=== PATIENT | female | born 1965 | race Caucasian/White ===

== ENCOUNTER → 2018-02-06 | Outpatient (CLI) | payer BC ==
--- NOTE | 2018-02-07 10:35 | ECHOF ---
Referral Reason:R06.02 Shortness of breath, R06.00 Dyspnea MEASUREMENTS -------- HEIGHT: 162.6 cm WEIGHT: 86.2 kg BP: 142/80 RVIDd: 3.2 cm (< 3.3) IVSd: 1.2 cm (0.6 - 1.1) LVIDd: 4.2 cm (3.9 - 5.3) LVPWd: 1.2 cm (0.6 - 1.1) IVSs: 1.7 cm LVIDs: 2.4 cm LVPWs: 1.5 cm LAESV Index (A-L): 17.29 ml/m Ao Diam: 2.8 cm (2.0 - 3.7) AV Cusp: 2.1 cm (1.5 - 2.6) LA Diam: 3.2 cm (2.7 - 3.8) MV EXCURSION: 14.577 mm (> 18.000) MV EF SLOPE: 79 mm/s (70 - 150) MV E Apolinar: 0.95 m/s MV DecT: 232 ms MV A Apolinar: 0.96 m/s MV E/A Ratio: 0.99 RAP: 5.00 mmHg RVSP: 17.01 mmHg FINDINGS -------- Sinus rhythm. This was a technically adequate study. The left ventricular size is normal. There is mild concentric left ventricular hypertrophy. Overa ll left ventricular systolic function is normal with, an EF between 55 - 60 %. The right ventricle is normal in size and function. Normal LA size by volume 22+/-6 ml/m2. The right atrium is normal in size. The aortic valve is trileaflet, and appears structurally normal. No aortic stenosis or regurgitation. The mitral valve leaflets are mildly thickened. There is trace mitral regurgitation. Trace tricuspid regurgitation present. Right ventricular systolic pressure is normal at < 35 mmHg. There is no evidence of pulmonary hypertension. The pulmonic valve is normal. The aortic root size is normal. Normal inferior vena cava with normal inspiratory collapse consistent with estimated right atrial pre ssure of 5 mmHg. There is no pericardial effusion. CONCLUSIONS -------- 1. Sinus rhythm. 2. This was a technically adequate study. 3. The left ventricular size is normal. 4. There is mild concentric left ventricular hypertrophy. 5. Overall left ventricular systolic function is normal with, an EF between 55 - 60 %. 6. Normal LA size by volume 22+/-6 ml/m2. 7. The aortic valve is trileaflet, and appears structurally normal. No aortic stenosis or regurgitati on. 8. The mitral valve leaflets are mildly thickened. 9. There is trace mitral regurgitation. 10. Trace tricuspid regurgitation present. 11. Right ventricular systolic pressure is normal at < 35 mmHg. 12. There is no evidence of pulmonary hypertension. 13. The aortic root size is normal. 14. There is no pericardial effusion. HOSPITAL CNA: Yared Tam RDCS
== END | disposition home or self-care (01) ==
LOC: RADECHMAIN 16:13
PROVIDERS: ATTEND Family Medicine
DX: I08.1 Rheumatic disorders of both mitral and tricuspid valves (principal)
CPT/HCPCS: 93306

== ENCOUNTER → 2018-03-08 | Outpatient (CLI) | payer BC ==
--- NOTE | 2018-03-08 19:55 | CT ---
EXAMINATION TYPE: CT chest w con DATE OF EXAM: 03/08/2018 COMPARISON: CT abdomen pelvis 07/23/2013 HISTORY: lower lt lung nodule CT DLP: 351.3 mGycm, Automated exposure control for dose reduction was used. CONTRAST: Performed injected with 100 mL of Isovue 300. TECHNIQUE: Axial images were obtained at 5 mm thick sections. Reconstructed images are reviewed on [facility] ([facility] computer in the coronal plane. FINDINGS: Portion of the thyroid visualized is normal. There is a 0.8 cm nodule within the anterior lingula at the lung base. No enlarged mediastinal or hilar adenopathy is evident. The ascending aorta diameter at the level o f the main pulmonary artery is 3.6 cm. The main pulmonary artery diameter at the bifurcation is 2.6 cm. Small hiatal hernia is present. Limited CT sections are obtained through the upper abdomen. Abdomen is essentially unremarkable. IMPRESSIONS: 1. Lingular nodule. Follow-up exam in 6 months is recommended.
== END | disposition home or self-care (01) ==
LOC: RADCTMAIN 15:54
PROVIDERS: ATTEND Internal Medicine Critical Care Medicine
DX: R91.1 Solitary pulmonary nodule (principal)
CPT/HCPCS: 71260; Q9967

== ENCOUNTER → 2018-09-07 | Outpatient (CLI) | payer BC ==
--- NOTE | 2018-09-08 20:53 | CT ---
EXAMINATION TYPE: CT chest w con DATE OF EXAM: 09/07/2018 COMPARISON: 03/08/2018 and mammogram 11/17/2011 HISTORY: 52-year-old female left-sided chest pain, follow-up Lung nodules TECHNIQUE: Contiguous axial scanning of the chest after the administration of 100 mL of Isovue 300. Coronal/sagittal reconstructions performed. CT DLP: 339.6mGycm. Automatic exposure control utilized for a dose reduction. FINDINGS: Possible 2.2 cm round lesion in the central right breast, not clearly seen on the patient's 1 mammogram. Heart normal size without pericardial effusion. Ascending aorta is ectatic at 3.6 cm. Oval in configuration to the aortic arch. No thoracic lymphadenopathy. Mild dependent atelectasis. No consolidation or pleural effusion. Mild biapical pleural-parenchymal s carring. Redemonstrated inferior lingular nodule measuring 9 mm, not significantly changed from 03/08/2018, 6 m onths ago. Additional 6 and 12 month follow up exams are recommended. Tiny hiatal hernia. Visualized upper abdomen shows cholecystectomy clips. Bones: No osseous destructive process. IMPRESSION: 1. 9 mm inferior lingular nodule unchanged for 6 months. Additional 6 and 12 month follow-up exams re commended. 2. Possible 2.2 cm round mass or cyst in the central right breast, not clearly seen on the patient's 2010 mammogram. Physical exam, diagnostic mammogram, and ultrasound evaluation are recommended.
== END | disposition home or self-care (01) ==
LOC: RADCTMAIN 16:22
PROVIDERS: ATTEND Internal Medicine Critical Care Medicine
DX: R91.1 Solitary pulmonary nodule (principal)
CPT/HCPCS: 71260; Q9967

== ENCOUNTER → 2018-09-13 | Outpatient (CLI) | payer BC ==
--- NOTE | 2018-09-14 09:51 | MM ---
Reason for exam: clinical finding. Last mammogram was performed 6 years and 10 months ago. History: Benign left US cyst aspiration of the left breast, April 29, 2009. Took hormonal contraceptives for 5 years beginning at age 18. Physical Findings: Nurse Summary: 1.5 x 1cm nodule in the right breast at 12 o'clock (nurse ts). MG 3D Diag Mammo W/Cad DEON Bilateral CC and MLO view(s) were taken. Prior study comparison: November 17, 2011, CAD bilateral diagnostic mammogram. December 24, 2008, bilateral diagnostic digital mammog. The breast tissue is heterogeneously dense. This may lower the sensitivity of mammography. Thre is a round circumscribed stable left central upper middle depth mass. Benign appearing bilateral calcifications. These results were verbally communicated with the patient and result sheet given to the patient on 09/13/18. ASSESSMENT: Benign, BI-RAD 2 RECOMMENDATION: Routine screening mammogram of both breasts in 1 year.
--- NOTE | 2018-09-14 09:53 | USB ---
Reason for exam: clinical finding. History: Benign left US cyst aspiration of the left breast, April 29, 2009. Took hormonal contraceptives for 5 years beginning at age 18. US Breast RT Right complete breast ultrasound includes all four quadrants, the retroareolar region and axilla. Finding demonstrates a 5 x 2 x 5mm oval, cystic lesion at 10 o'clock, a 26 x 10 x 26mm oval, cystic lesion at 11 o'clock BB that corresponds with CT finding and a 9mm oval, lymph node at axilla tail. These results were verbally communicated with the patient and result sheet given to the patient on 09/13/18. ASSESSMENT: Benign, BI-RAD 2 RECOMMENDATION: Routine screening mammogram of both breasts in 1 year.
== END | disposition home or self-care (01) ==
LOC: RADMAMWWP 14:10
PROVIDERS: ATTEND Internal Medicine Critical Care Medicine
DX: N63.10 Unspecified lump in the right breast, unspecified quadrant (principal)
CPT/HCPCS: 77062; 77066

== ENCOUNTER → 2018-10-31 | Outpatient (CLI) | payer BC ==
--- NOTE | 2018-11-01 08:42 | CT ---
EXAMINATION TYPE: CT abdomen pelvis w con DATE OF EXAM: 10/31/2018 COMPARISON: 09/07/2018 CT chest, 07/23/2013 CT abdomen pelvis INDICATION: RLQ pain x1 year DLP: 1059.6 mGycm, Automated exposure control for dose reduction was used. CONTRAST: 100 mL of Isovue 300. Study performed with Oral Contrast TECHNIQUE: Axial images were obtained from above the diaphragm to the pubic rami in the axial plane a t 5 mm thick sections. Reconstructed images are reviewed on the computer in the coronal plane. FINDINGS: Limited CT sections are obtained the lung bases. There is a 0.7 cm nodule within the lingula. This h as enlarged from 0.5 cm measurement of 07/23/2013.. This was present on the 09/07/[address] hest with a stable transverse dimension of 0.[address] ABDOMEN: Liver: Normal Spleen: Normal Pancreas: Normal Adrenal glands: The adrenal glands are normal. Gallbladder: Surgically absent Kidneys: No masses are evident. No hydronephrosis is present. No cysts are present. Delayed images were obtained through the kidneys, which remain unremarkable. Aorta: Vascular calcification is within the aorta. Inferior vena cava: Normal. CT PELVIS: Loops of bowel within the abdomen and pelvis are normal. There are loops of bowel which are incom pletely distended or lack oral contrast limiting their evaluation. Appendix: Normal as visualized. Urinary bladder: Normal. Genitourinary structures: Uterus is unremarkable. Adnexal regions are clear. No free fluid is within the pelvis. Osseous structures: No suspicious lytic or sclerotic lesions. IMPRESSIONS: 1. Enlarging nodule from 2012 within the lingula at the base, stable from 09/07/2018. Continued anais toring as recommended on the CT chest 09/07/[address] abdomen and pelvis appears unremarkable. No suspicious etiology to account for right lower quad rant pain is evident.
== END | disposition home or self-care (01) ==
LOC: RADCTMAIN 15:59
PROVIDERS: ATTEND Family Medicine
DX: R10.31 Right lower quadrant pain (principal)
CPT/HCPCS: 74177; Q9967

== ENCOUNTER → 2020-04-06 | Outpatient (CLI) | payer BC ==
--- NOTE | 2020-04-06 16:29 | CT ---
EXAMINATION TYPE: CT abdomen pelvis wo con DATE OF EXAM: 04/06/2020 COMPARISON: CT abdomen pelvis dated 10/31/[address] thorax dated 03/08/2018. HISTORY: Gross hematuria. CT DLP: 886.8 mGycm Automated exposure control for dose reduction was used. TECHNIQUE: Helical acquisition of images was performed from the lung bases through the pelvis. FINDINGS: Lack of intravenous and oral contrast limit evaluation of both the hollow and solid viscera . LUNG BASES: There is a lingular solid pulmonary nodule measuring 9 mm x 7 mm similar size to the prio r exams dating back to 03/08/2018. Subsegmental dependent atelectasis at the lung bases is present. Th ere is some motion artifact in the lung bases limiting evaluation. LIVER/GB: Unenhanced liver is grossly unremarkable. Gallbladder is surgically absent. PANCREAS: No significant abnormality is seen. SPLEEN: No significant abnormality is seen. ADRENALS: No significant abnormality is seen. KIDNEYS: There is a punctate nonobstructing right renal calculus in the lower pole measuring 1 to 2 m m. In the mid to distal left ureter at the level of L5-S1 there is a 4 mm calculus however there is n o significant left-sided hydroureteronephrosis. This calculus appears new from the prior 2018. No rad iopaque catheter in the urinary bladder. Urinary bladder is incompletely distended limiting evaluatio n. Very tiny urachal remnant is seen. REPRODUCTIVE ORGANS: Partially calcified lobulated structure in the right upper uterine segment likel y represents a uterine leiomyoma. This can be further evaluated with pelvic ultrasound. Another possi ble uterine leiomyoma appears exophytic from the fundus measuring 1.6 cm. ADENOPATHY: No greater than 1 cm short axis lymph node in the abdomen or pelvis. OSSEOUS STRUCTURES: No significant abnormality is seen. BOWEL: There is a very small hiatal hernia. Appendix appears upper limits of normal size measuring 6 mm however no significant periappendiceal fat stranding is seen. No dilated large or small bowel. OTHER: Moderate atherosclerosis of the abdominal aorta and its branches. IMPRESSION: 1. THERE IS A 4 MM CALCULUS IN THE MID TO DISTAL LEFT URETER, HOWEVER THERE IS NO SIGNIFICANT LEFT-SI DED HYDROURETERONEPHROSIS. 2. PROBABLE UTERINE LEIOMYOMAS. PELVIC ULTRASOUND IS RECOMMENDED FOR FURTHER EVALUATION. 3. OVERALL STABLE LINGULAR PULMONARY NODULE DATING BACK TO 03/08/2018 ALTHOUGH THIS WAS STATED TO HAVE INCREASED IN SIZE FROM 2013, THEREFORE ADDITIONAL 1 [address] FOLLOW-UP CT THORAX COULD ESTABLISH MORE LO NG-TERM STABILITY.
== END | disposition home or self-care (01) ==
LOC: RADCTMAIN 15:34
PROVIDERS: ATTEND Nurse Practitioner Family
DX: N20.1 Calculus of ureter (principal)
CPT/HCPCS: 74176

== ENCOUNTER → 2020-04-28 | Outpatient (CLI) | payer BC ==
--- NOTE | 2020-04-28 11:28 | CT ---
EXAMINATION TYPE: CT abdomen pelvis wo con DATE OF EXAM: 04/28/2020 COMPARISON: 04/06/2020 HISTORY: Right sided pain with recent renal stone. CT DLP: 801.6 mGycm Automated exposure control for dose reduction was used. TECHNIQUE: Helical acquisition of images was performed from the lung bases through the pelvis. FINDINGS: LUNG BASES: Subsegmental changes are seen at both lung bases. There is a 1 cm x 7 mm left lower lobe pulmonary nodule. This is incrementally increased in size from the CT scan of 03/08/2018. LIVER/GB: Postcholecystectomy changes noted. PANCREAS: No significant abnormality is seen. SPLEEN: No significant abnormality is seen. ADRENALS: No significant abnormality is seen. KIDNEYS: There is mild left hydronephrosis. There is a 2 mm obstructing left UVJ calculus. ADENOPATHY: None visualized. OSSEOUS STRUCTURES: No significant abnormality is seen. BOWEL: No significant abnormality is seen. OTHER: Calcification of the uterus likely on the basis of fibroid and there is an exophytic mass like ly also related to fibroid standing anteriorly measuring 1.8 cm. This is stable from the prior exam. IMPRESSION: 1. There is a 2 mm obstructing left UVJ ureteral calculus with mild left hydronephrosis. 2. 1 cm pulmonary nodule slightly increased in size from prior exam. Recommend PET scan. 3. Suspected uterine fibroids.
== END | disposition home or self-care (01) ==
LOC: RADCTMAIN 10:44
PROVIDERS: ATTEND Nurse Practitioner Family
DX: N13.2 Hydronephrosis with renal and ureteral calculous obstruction (principal)
CPT/HCPCS: 74176

== ENCOUNTER → 2020-05-15 | Outpatient (CLI) | payer BC ==
--- NOTE | 2020-05-19 20:19 | PE ---
EXAMINATION TYPE: PET CT fusion skull to thigh DATE OF EXAM: 05/15/2020 CLINICAL HISTORY: 54-year-old female R91.1, solitary pulmonary nodule TECHNIQUE: Following the intravenous administration of 10.5 mCi of F-18 FDG, whole body images are performed from the skull base to the midthigh. Images are reviewed on the computer in the coronal, a xial, and sagittal planes. Reconstructed rotating images are created on independent workstation and reviewed on the computer. A localization and attenuation correction CT is performed in conjunction with the PET scan. Glucose level: 98 mg/dL COMPARISON: CT chest 09/07/2018 FINDINGS: PET: Physiologic FDG uptake within the neck. 1.1 cm inferior lingular pulmonary nodule again noted to be slightly larger from 09/07/2018 where it measured 9 mm. There is no discrete FDG uptake within this nodule. Mild increased uptake at the areola, symmetric from side to side, likely physiologic. Otherwise, norm al, physiologic FDG uptake within the remainder of the chest. Average liver SUV: 2.4 Physiologic FDG uptake within the abdomen and pelvis. ATTENUATION CORRECTION CT: Visualized paranasal sinuses, orbits and globes, and mastoid air cells appear clear. No cervical lymp hadenopathy seen. Orotracheal column appears patent. Heart upper limits of normal in size without pericardial effusion. Scattered three-vessel coronary ar blade calcifications are present. Ectatic ascending aorta 3.5 cm. Bovine configuration to the aortic arch. Ectatic upper descending thoracic aorta 3.1 cm. No thoracic lymphadenopathy by CT size criteri a. Prominent areas of hazy atelectasis especially in the posterior lower lungs. No consolidation or p leural effusion. Small hiatal hernia. Mild atherosclerotic calcifications abdominal aorta without aneurysm. Cholecyste ctomy clips. No dilated small bowel, free fluid, or free air. No mesenteric or retroperitoneal lympha denopathy. Scattered mild stool. Subserosal fibroid projecting anteriorly from the left uterine fundus measuring 1.8 cm. A couple left -sided pelvic phleboliths. No abnormal fluid collection in the pelvis or pelvic lymphadenopathy. Both ovaries are visualized. Bones: Mild degenerative change of the hips and facet arthropathy lower lumbar spine. No osseous dest ructive process. IMPRESSION: 1. The patient's 1.1 cm inferior lingular pulmonary nodule again noted to have minimally increased in size from 2018 where it measured 9 mm. There is no discrete FDG uptake here. While a benign etiology is favored, given the slight growth, annual surveillance is recommended. 2. CAD and small hiatal hernia.
== END | disposition home or self-care (01) ==
LOC: RADPETMAIN 07:12
PROVIDERS: ATTEND Family Medicine
DX: I25.10 Atherosclerotic heart disease of native coronary artery without angina pectoris (principal); K44.9 Diaphragmatic hernia without obstruction or gangrene
CPT/HCPCS: 78815; A9552

== ENCOUNTER → 2020-09-01 | Outpatient (CLI) | payer BC ==
--- NOTE | 2020-09-02 11:32 | MM ---
Reason for exam: screening (asymptomatic). Last mammogram was performed 2 years ago. History: Patient is postmenopausal. Family history of breast cancer in mother at age 86. Benign left US cyst aspiration of the left breast, April 29, 2009. Took hormonal contraceptives for 5 years beginning at age 18. Physical Findings: A clinical breast exam by your physician is recommended on an annual basis and results should be correlated with mammographic findings. MG 3D Screening Mammo W/Cad Bilateral CC and MLO view(s) were taken. Prior study comparison: September 13, 2018, bilateral MG 3d diag mammo w/cad DEON. November 17, 2011, CAD bilateral diagnostic mammogram. The breast tissue is heterogeneously dense. This may lower the sensitivity of mammography. There is chronic nodularity in the left breast. There is no dominant lesion. There is no discrete abnormality. ASSESSMENT: Benign, BI-RAD 2 RECOMMENDATION: Routine screening mammogram of both breasts in 1 year.
== END | disposition home or self-care (01) ==
LOC: RADMAMWWP 07:28
PROVIDERS: ATTEND Obstetrics & Gynecology
DX: Z12.31 Encounter for screening mammogram for malignant neoplasm of breast (principal)
CPT/HCPCS: 77063; 77067

== ENCOUNTER → 2021-04-16 | Outpatient (CLI) | payer BC ==
--- NOTE | 2021-04-16 21:01 | CT ---
EXAMINATION TYPE: CT chest w con DATE OF EXAM: 04/16/2021 COMPARISON: CT chest 09/07/2018, PET/CT 05/15/2020 HISTORY: lung nodule CT DLP: 393.70 mGycm Automated exposure control for dose reduction was used. CONTRAST: CT scan of the chest is performed with IV Contrast, patient injected with 100 mL of Isovue 300. FINDINGS: LUNGS: The lungs are stable, there is no concerning parenchymal mass or nodule identified. Nodule wit hin the lingula is essentially stable compared to prior exam of 2018. There is no pleural effusion o r pneumothorax seen. The tracheobronchial tree is patent. MEDIASTINUM: There are no greater than 1 cm hilar or mediastinal lymph nodes. No pericardial effusi on is seen. AORTA: No additional significant abnormality is seen. OTHER: Patient is post cholecystectomy. Liver shows low attenuation possibly due to hepatic steatosi s.. IMPRESSION: No significant interval change, benign
== END | disposition home or self-care (01) ==
LOC: RADCTMAIN 16:46
PROVIDERS: ATTEND Internal Medicine Critical Care Medicine
DX: R91.1 Solitary pulmonary nodule (principal)
CPT/HCPCS: 71260; Q9967

== ENCOUNTER → 2022-07-05 | Outpatient (CLI) | payer BC ==
--- NOTE | 2022-07-05 08:10 | US ---
EXAMINATION TYPE: US abdomen complete DATE OF EXAM: 07/05/2022 COMPARISON: CT 2019 CLINICAL HISTORY: R1011 Right upper quadrant pain. Intermittent right sided pain x couple months TECHNIQUE: Multiple sonographic images of the abdomen are obtained. FINDINGS: EXAM MEASUREMENTS: Liver Length: 15.8 cm Gallbladder Wall: cm CBD: 0.9 cm Spleen: 9.5 cm Right Kidney: 9.6 x 4.3 x 4.8 cm Left Kidney: 11.0 x 5.7 x 5.2 cm Pancreas: visualized portions wnl, limited by overlying midline bowel gas Liver: attenuating, course echotexture Gallbladder: surgically absent Evidence for sonographic Morel's sign: no CBD: visualized portions wnl, limited by overlying bowel gas Spleen: visualized portions wnl, limited by overlying bowel gas Right Kidney: wnl Left Kidney: wnl Upper IVC: wnl Abd Aorta: visualized portions wnl, limited by overlying midline bowel gas The intrahepatic portion of the IVC and proximal abdominal aorta are within normal limits. There is no evidence of cholelithiasis. Common bile duct is unremarkable. The visualized portions of the stark creas are homogenous. The spleen is unremarkable. Kidneys are symmetric and free of hydronephrosis. No renal lesions are seen. IMPRESSION: Hepatic steatosis.
== END | disposition home or self-care (01) ==
LOC: RADUSWWP 06:55
PROVIDERS: ATTEND Family Medicine
DX: R10.11 Right upper quadrant pain (principal)
CPT/HCPCS: 76700

== ENCOUNTER → 2022-08-25 | Outpatient (CLI) | payer BC ==
--- NOTE | 2022-08-27 09:41 | CT ---
EXAMINATION TYPE: CT abdomen pelvis w con CT DLP: 1425.7 mGycm, Automated exposure control for dose reduction was used. DATE OF EXAM: 08/25/2022 7:21 PM COMPARISON: CT abdomen pelvis most recent from 04/28/2020, PET/CT 05/15/2020, CT chest 05/17/2021 CLINICAL INDICATION:Female, 56 years old with history of K76.0 R10.31 R10.11; Right side abdomen pain TECHNIQUE: Axial CT of the abdomen and pelvis. Sagittal and coronal reformats were created on a [employer] workstation. Contrast used:100cc mL of Isovue 370 with IV Contrast, Oral contrast used: with Oral Contrast FINDINGS: LOWER CHEST: Lingula pulmonary nodule measuring 14 mm which is not significantly changed from prior o n 04/16/2021 ABDOMEN LIVER: Diffusely hypoattenuating parenchyma. Right subcentimeter hepatic cyst. GALLBLADDER AND BILE DUCTS: Gallbladder is surgically absent with mild intrahepatic and extra hepatic biliary dilatation likely physiologic and a postcholecystectomy change. No evidence of choledocholit hiasis. PANCREAS: Unremarkable. SPLEEN: Unremarkable. ADRENAL GLANDS: Unremarkable. KIDNEYS AND URETERS: No evidence of hydronephrosis or renal calculus. The ureters are unremarkable. PELVIS BLADDER: Distended without abnormality. REPRODUCTIVE: Degenerating calcified fibroid. ABDOMEN & PELVIS STOMACH AND BOWEL: No evidence of bowel obstruction. Appendix is somewhat dilated up to 8 mm without adjacent fat stranding changes. There is a moderate stool burden predominantly in the right colon. PERITONEUM: No evidence of pneumoperitoneum or free fluid. VASCULATURE: No evidence of aortic aneurysm. MUSCULOSKELETAL: No acute osseous abnormalities LYMPH NODES: No gross evidence for lymphadenopathy. SOFT TISSUE/ABDOMINAL WALL: Small fat-containing umbilical hernia. IMPRESSION: 1. No evidence for acute intra-abdominal process to explain the patient's pain. 2. Dilation of the appendix without associated inflammation (Fat stranding), findings similar back t o at least 2019. 3. Moderate fecal burden most pronounced in the right abdomen. 4. Stable size of lingular pulmonary nodule back to at least 05/15/2020 PET/CT.
== END | disposition home or self-care (01) ==
LOC: RADCTMAIN 17:02
PROVIDERS: ATTEND Family Medicine
DX: K76.0 Fatty (change of) liver, not elsewhere classified (principal); R10.31 Right lower quadrant pain; R10.11 Right upper quadrant pain
CPT/HCPCS: 74177; Q9967

== ENCOUNTER → 2022-11-09 | Outpatient (CLI) | payer BC ==
--- NOTE | 2022-11-10 19:09 | MM ---
Reason for Exam: Screening (asymptomatic). Last mammogram was performed 2 year(s) and 2 month(s) ago. Patient History: Menarche at age 12. First Full-Term at age 18. Postmenopausal. Hormonal Contraceptives for 5 years from age 18 until age 30. 04/29/2009, Benign Cyst Aspiration on the left side. Mother had breast cancer, age 86. Risk Values: Ligia 5 year model risk: 2.3%. NCI Lifetime model risk: 14.5%. Prior Study Comparison: 11/17/2011 Bilateral Diagnostic Mammogram, [facility]. 09/13/2018 Bilateral Diagnostic Mammogram, [facility]. 09/01/2020 Bilateral Screening Mammogram, [facility]. Tissue Density: The breast tissue is heterogeneously dense. This may lower the sensitivity of mammography. Findings: Analyzed By CAD. Chronic circumscribed nodularity 12:00 central left breast. On several prior studies, this is more apparent on the 3-D images. There is no suspicious group of microcalcifications or new suspicious mass in either breast. Overall Assessment: Benign, BI-RAD 2 Management: Screening Mammogram of both breasts in 1 year. 1. Patient should continue monthly self breast exams. 2. A clinical breast exam by your physician is recommended on an annual basis. 3. This exam should not preclude additional follow-up of suspicious palpable abnormalities. Electronically signed and approved by: Miryam Eaton M.D. Radiologist
== END | disposition home or self-care (01) ==
LOC: RADMAMWWP 15:57
PROVIDERS: ATTEND Obstetrics & Gynecology
DX: Z12.31 Encounter for screening mammogram for malignant neoplasm of breast (principal); Z78.0 Asymptomatic menopausal state; Z80.3 Family history of malignant neoplasm of breast
CPT/HCPCS: 77063; 77067

== ENCOUNTER → 2022-11-16 | Outpatient (CLI) | payer BC ==
--- NOTE | 2022-11-16 13:21 | BD ---
EXAMINATION TYPE: Axial Bone Density DATE OF EXAM: 11/16/2022 COMPARISON: BASELINE CLINICAL HISTORY: 56 years old Female. ICD-10 CODE: M85.88 DISORDER OF BONE Height: 64 Weight: 207 FRAX RISK QUESTIONS: Alcohol (3 or more units per day): NO Family History (Parent hip fracture): NO History of Fracture in Adulthood: NO Secondary Osteoporosis: NO Rheumatoid Arthritis: NO Current Tobacco Use: NO RISK FACTORS HISTORY OF: Family History of Osteoporosis:YES BROTHER Active: YES Diet low in dairy products/other sources of calcium: NO Postmenopausal woman: YES Lost more than 2 inches in height since high school: NO Frequent falls: NO Poor Health: NO MEDICATIONS: Additional Medications: YES HEART MEDS , KRILL OIL , CHOLESTEROL EXAM MEASUREMENTS: Bone mineral densitometry was performed using the [employer]. Bone mineral density as measured about the Lumbar spine is: ----- L1-L4(G/cm2): 1.096 T Score Values are as follows: ----- L1: -0.4 ----- L2: -1.1 ----- L3: -0.3 ----- L4: -1.1 ----- L1-L4: -0.7 Bone mineral density BASELINE Bone mineral density about the R hip (g/cm2): 0.932 Bone mineral density about the L hip (g/cm2): 0.989 T Score values are as follows: -----R Neck: -1.8 -----L Neck: -1.1 -----R Total: -0.6 -----L Total: -0.1 Bone mineral density BASELINE FRAX%s: The graph provided illustrates a 7.4% chance for a major osteoporotic fx and a 0.7% chance fo r the hips probability for fx in 10 years time. IMPRESSION: Osteopenia (T Score between -2.5 and -1). There is slightly increased risk of fracture and the patient may be considered for treatment. Re-Screen 2-5 years. NOTE: T-SCORE=SD OF THE YOUNG ADULT MEAN.
== END | disposition home or self-care (01) ==
LOC: RADBDWWP 11:03
PROVIDERS: ATTEND Obstetrics & Gynecology
DX: M85.89 Other specified disorders of bone density and structure, multiple sites (principal); Z78.0 Asymptomatic menopausal state
CPT/HCPCS: 77080

== ENCOUNTER → 2023-08-10 | Outpatient (CLI) | payer BC ==
--- NOTE | 2023-08-11 07:52 | US ---
EXAMINATION TYPE: US thyroid st tissue head/neck DATE OF EXAM: 08/10/2023 COMPARISON: NONE CLINICAL INDICATION: Female, 57 years old with history of R22.9 LOCALIZED SWELLING, MASS AND LUMP, UN SPECIFI; Small palpable lump midline neck under chin Midline neck: 0.5 x 0.4 x 0.6cm hypoechoic area at patient's palp, possible lymph node IMPRESSION: There is a 5 x 4 x 6 mm hypoechoic nodule in the area of palpable abnormality most likel y related to small lymph node. Short-term follow-up to resolution recommended
== END | disposition home or self-care (01) ==
LOC: RADUSWWP 16:32
PROVIDERS: ATTEND Family Medicine
DX: E04.1 Nontoxic single thyroid nodule (principal); R22.0 Localized swelling, mass and lump, head
CPT/HCPCS: 76536

== ENCOUNTER → 2023-11-14 | Outpatient (CLI) | payer BC ==
--- NOTE | 2023-11-15 12:34 | MM ---
Reason for Exam: Screening (asymptomatic). Last screening mammogram was performed 12 month(s) ago. Patient History: Menarche at age 12. First Full-Term at age 18. Postmenopausal. Hormonal Contraceptives for 5 years from age 18 until age 30. 04/29/2009, Benign Cyst Aspiration on the left side. Mother had breast cancer, age 86. Risk Values: Ligia 5 year model risk: 2.4%. NCI Lifetime model risk: 14.2%. Prior Study Comparison: 09/13/2018 Bilateral Diagnostic Mammogram, [facility]. 09/01/2020 Bilateral Screening Mammogram, [facility]. 11/09/2022 Bilateral MG 3D screening mammo w/cad, [facility]. Tissue Density: The breast tissue is heterogeneously dense. This may lower the sensitivity of mammography. Findings: Analyzed By CAD. There is no suspicious group of microcalcifications or new suspicious mass. Overall Assessment: Negative, BI-RAD 1 Management: Screening Mammogram of both breasts in [address] [facility] will attempt to contact patient to return for supplemental views and ultrasound if indicated. Patient should continue monthly self-breast exams. A clinical breast exam by your physician is recommended on an annual basis. This exam should not preclude additional follow-up of suspicious palpable abnormalities. Note on Ligia scores and lifetime risk: 1. A Ligia score greater than 3% is considered moderate risk. If this is the case, consider specialist referral to assess eligibility for a risk reducing agent. 2. If overall lifetime risk for the development of breast cancer is 20% or higher, the patient may qualify for future screening with alternating mammogram and breast MRI. Electronically signed and approved by: Shad Paz DO
== END | disposition home or self-care (01) ==
LOC: RADMAMWWP 16:36
PROVIDERS: ATTEND Family Medicine
DX: Z12.31 Encounter for screening mammogram for malignant neoplasm of breast (principal); Z80.3 Family history of malignant neoplasm of breast; Z78.0 Asymptomatic menopausal state
CPT/HCPCS: 77063; 77067

== ENCOUNTER → 2025-05-12 | Outpatient (CLI) | payer BC ==
--- NOTE | 2025-05-12 08:38 | US ---
EXAMINATION TYPE: US st tissue neck DATE OF EXAM: 05/12/2025 COMPARISON: NONE CLINICAL INDICATION: Female, 59 years old with history of R59.0 LOCALIZED ENLARGED LYMPH NODES; Painf ul two lumps at cervical posterior neck area x few weeks. TECHNIQUE: Targeted scanning along the posterior left side of the neck and the patient's painful lum ps. FINDINGS: Rounded hypoechoic lymph nodes seen at patients AOC, left posterior neck Superior LN = 1.1 x 0.9 x 0.[address] = 1.2 x 0.8 x 1.0 cm Right neck scanned for comparison. There is a prominent 1.4 x 1.0 x 0.7 cm submandibular space lymph node. IMPRESSION: 1. A couple borderline enlarged and thickened lymph nodes posterior left neck corresponding to the pa tient's painful lumps. Findings may be reactive or due to lymphadenitis. Recommend follow-up in 4-6 w eeks to assess for stability/resolution. If any suspicious clinical features develop or progressive e nlargement is noted, CT and/or tissue sampling may be indicated. 2. An additional incidental borderline to mildly enlarged right submandibular space lymph node measur ing up to 1.0 cm short axis. [facility], , 05/12/2025 8:35 AM
== END | disposition home or self-care (01) ==
LOC: RADUSWWP 07:48
PROVIDERS: ATTEND Family Medicine
DX: R22.1 Localized swelling, mass and lump, neck (principal)
CPT/HCPCS: 76536

== ENCOUNTER → 2025-05-12 | Outpatient (CLI) | payer BC ==
--- NOTE | 2025-05-12 09:03 | MM ---
Reason for Exam: Screening (asymptomatic). Last mammogram was performed 1 year(s) and 6 month(s) ago. Patient History: Menarche at age 12. First Full-Term at age 18. Hysterectomy at age 36. Postmenopausal. Hormonal Contraceptives for 5 years from age 18 until age 30. 04/29/2009, Benign Cyst Aspiration on the left side. Mother had breast cancer, age 86. Risk Values: Ligia 5 year model risk: 2.6%. NCI Lifetime model risk: 13.5%. Prior Study Comparison: 09/13/2018 Bilateral Diagnostic Mammogram, [facility]. 09/01/2020 Bilateral Screening Mammogram, [facility]. 11/09/2022 Bilateral MG 3D screening mammo w/cad, [facility]. 11/14/2023 Bilateral MG 3D screening mammo w/cad, [facility]. Tissue Density: The breasts are heterogeneously dense, which may obscure small masses. Findings: Analyzed By CAD. Right breast: There is no suspicious group of microcalcifications or new suspicious mass. Left breast: Focal asymmetry masslike fibroglandular tissue measuring 8 mm approximately 10 cm from nipple in the upper medial aspect approximately 10-12 o'clock in the left breast. Overall Assessment: Incomplete: need additional imaging evaluation, BI-RAD 0 Management: Diagnostic Breast Ultrasound of the left breast. Mediolateral view of the left breast posterior depth with ultrasound imaging targeting the inner upper quadrant ostomy 10 cm from the nipple. [facility] will attempt to contact patient to return for supplemental views and ultrasound if indicated. Patient should continue monthly self-breast exams. A clinical breast exam by your physician is recommended on an annual basis. This exam should not preclude additional follow-up of suspicious palpable abnormalities. Note on Ligia scores and lifetime risk: 1. A Ligia score greater than 3% is considered moderate risk. If this is the case, consider specialist referral to assess eligibility for a risk reducing agent. 2. If overall lifetime risk for the development of breast cancer is 20% or higher, the patient may qualify for future screening with alternating mammogram and breast MRI. [facility], , 05/12/2025 9:00 AM. Electronically signed and approved by: Shad Paz DO
== END | disposition home or self-care (01) ==
LOC: RADMAMWWP 07:46
PROVIDERS: ATTEND Obstetrics & Gynecology
DX: Z12.31 Encounter for screening mammogram for malignant neoplasm of breast (principal); R92.333 Mammographic heterogeneous density, bilateral breasts; Z78.0 Asymptomatic menopausal state; Z80.3 Family history of malignant neoplasm of breast; Z92.0 Personal history of contraception
CPT/HCPCS: 77063; 77067

== ENCOUNTER → 2025-05-13 | Outpatient (CLI) | payer BC ==
--- NOTE | 2025-05-13 15:29 | USB ---
Reason for Exam: Additional evaluation requested from abnormal screening. Patient History: Menarche at age 12. First Full-Term at age 18. Hysterectomy at age 36. Postmenopausal. Hormonal Contraceptives for 5 years from age 18 until age 30. 04/29/2009, Benign Cyst Aspiration on the left side. Mother had breast cancer, age 86. Risk Values: Ligia 5 year model risk: 2.6%. NCI Lifetime model risk: 13.5%. Technique: Method: Targeted. Prior Study Comparison: 11/09/2022 Bilateral MG 3D screening mammo w/cad, [facility]. 11/14/2023 Bilateral MG 3D screening mammo w/cad, [facility]. 05/12/2025 Bilateral MG 3D screening mammo w/cad, [facility]. Findings: The upper section of the breast of the left breast, the axilla of the left breast and the retroareolar of the left breast were scanned. Technique utilized:US breast workup limited LT Image; Ultrasound imaging of: All 4 quadrants, the retroareolar region and axilla. * Left breast 10:00 10 cm from the nipple Hypoechoic irregular shaped taller than wide 9 x 10 x 12 mm. Biopsy of this is recommended. * Left breast 11:00 3 cm from the nipple round hypoechoic mass measuring 10 x 8 x 9 mm. Biopsy of this is recommended. * Left axilla thickened lymph node measuring up to 12 mm. Biopsy of this is recommended. Overall Assessment: Highly suggestive of malignancy, BI-RAD 5 Management: Ultrasound Core Biopsy of the left breast. 3 site biopsy left breast. A clinical breast exam by your physician is recommended on an annual basis and results should be correlated with mammographic findings. This exam should not preclude additional follow-up of suspicious palpable abnormalities. Results were given to the patient verbally at the time of exam. [facility], , 05/13/2025 3:26 PM. Electronically signed and approved by: Shad Paz DO
== END | disposition home or self-care (01) ==
LOC: RADUSWWP 14:59
PROVIDERS: ATTEND Obstetrics & Gynecology
DX: R92.8 Other abnormal and inconclusive findings on diagnostic imaging of breast (principal); Z78.0 Asymptomatic menopausal state; Z80.3 Family history of malignant neoplasm of breast; Z92.0 Personal history of contraception

== ENCOUNTER → 2025-05-22 | Day surgery (SDC) | payer BC ==
--- NOTE | 2025-05-29 10:36 | MM ---
Reason for Exam: Post Procedure Mammogram. Last screening mammogram was performed less than 1 month ago. Patient History: Menarche at age 12. First Full-Term at age 18. Hysterectomy at age 36. Postmenopausal. Hormonal Contraceptives for 5 years from age 18 until age 30. 04/29/2009, Benign Cyst Aspiration on the left side. Mother had breast cancer, age 86. Risk Values: Ligia 5 year model risk: 2.6%. NCI Lifetime model risk: 13.5%. Prior Study Comparison: 09/13/2018 Bilateral Diagnostic Mammogram, [facility]. 09/01/2020 Bilateral Screening Mammogram, [facility]. 11/09/2022 Bilateral MG 3D screening mammo w/cad, [facility]. 11/14/2023 Bilateral MG 3D screening mammo w/cad, [facility]. 05/12/2025 Bilateral MG 3D screening mammo w/cad, [facility]. Tissue Density: Left: The breasts are heterogeneously dense, which may obscure small masses. Pathology Description: Location: 10 o'clock. Marker Left Behind. Needle Type: Mammotome Cores: 5 Gauge: 13 11:00, 3 CORES, WING CLIP, GAUGE 13/ AXILLA, 3 CORES, BUTTERFLY CLIP, GAUGE 13Initial scanning shows: 10:00, 1.1 cm vertically oriented suspicious mass, 10 cm from the nipple. 11:00, 9 mm possible oil cyst, 3 cm from the nipple. Axillary, atypical rounded 1.4 cm lymph node. These are targeted for biopsy. The procedure of ultrasound guided core biopsy was explained to the patient. Benefits, alternatives, and risks were discussed. An informed consent was then obtained. The patient was placed in supine positioning for imaging and for the procedure. The overlying skin was prepped and draped in usual sterile fashion. Lidocaine buffered with bicarbonate was used as anesthetic into the skin followed by lidocaine/epinephrine into the subcutaneous tissue up to each area of concern in the left breast. A. 10:00 suspicious 1.1 cm lesion: Under ultrasound guidance, a 13-gauge vacuum-assisted mammotome Elite biopsy gun device was used to obtain 5 core samples. Following this, a HydroMark coil clip was left in lesion. B. 11:00 3CFN possible 9 mm oil cyst: Under ultrasound guidance, a 13-gauge vacuum-assisted mammotome Elite biopsy gun device was used to obtain 3 core samples. The lesion collapsed after the first pass. Following this, a wing clip was left at the site of biopsy. C. Axillary lymph node, rounded morphology, 1.4 cm: Under ultrasound guidance, a 13-gauge vacuum-assisted mammotome Elite biopsy gun device was used to obtain 3 core samples. Following this, a HydroMark butterfly clip was left within the lymph node. The patient tolerated the procedure well without any immediate complication. The patient was kept in the radiology department for short stay after the procedure and then discharged home in stable condition. Postprocedure mammogram: The patient was transferred to mammography for physician ordered post procedure mammogram for clip placement verification. Postprocedure mammogram shows posterior 10:00 suspicious mass with a coil clip in place. Wing clip at 11:00 middle depth at the suspected cyst/oil cyst. The axillary butterfly clip is outside the field of view. IMPRESSION: Successful, uncomplicated ultrasound guided 3 site left breast core needle biopsy: 1. Suspicious 1.1 cm 10:00 mass (coil clip), 2. Suspected benign 9 mm lesion, possible cyst/oil cyst 11:00 position middle depth (wing clip), 3. Rounded, thickened axillary lymph node (butterfly clip) Note the patient's left neck adenopathy seen on the 05/12/2025 ultrasound. Depending on biopsy results, further tissue sampling of a neck lymph node can be considered. Full pathology results to follow. [facility], , 05/22/2025 10:34 AM. Pathology Results: Result: Malignant, Invasive ductal carcinoma. Pathology and radiology were reviewed. Findings are concordant. A. LEFT BREAST AT 10:00, NEEDLE CORE BIOPSY: Invasive poorly differentiated ductal carcinoma (Grade 3). See Surgical Pathology Cancer Case Summary and Comment. B. LEFT BREAST AT 11:00, NEEDLE CORE BIOPSY: Scar/fibrosis with histiocytes and hemosiderin pigment deposition. Negative for malignancy. C. LEFT AXILLA, CORE BIOPSY: Lymph node positive for metastatic poorly differentiated ductal mammary carcinoma. See comment. Overall Assessment: Malignant Assessment: MG diagnostic mammo LT wo CAD. - Left: Known biopsy proven malignancy, BI-RAD 6. Management: Surgical Consultation of the left breast. Electronically signed and approved by: Miryam Eaton M.D. Radiologist
== END ==
LOC: RADUSWWP 07:02
PROVIDERS: ATTEND Obstetrics & Gynecology
DX: C50.912 Malignant neoplasm of unspecified site of left female breast (principal); C77.3 Secondary and unspecified malignant neoplasm of axilla and upper limb lymph nodes; L90.5 Scar conditions and fibrosis of skin; R92.8 Other abnormal and inconclusive findings on diagnostic imaging of breast; Z78.0 Asymptomatic menopausal state; Z80.3 Family history of malignant neoplasm of breast
CPT/HCPCS: 88305; 88342; 88341; 77065; 19083; 19084; 38505; A4648